=== PATIENT | male | born 1995 | race Caucasian/White ===

== ENCOUNTER 2023-11-29 08:57 | Outpatient (CLI) | payer SELFPAY ==
--- NOTE | 2023-11-29 09:15 | ECHOD_ITS ---
Reason For Study: Hypertrophic CMP Procedure This was a 2D Doppler, Color Flow transthoracic echocardiogram. Exam performed in department. Left Ventricle Normal LV size. Severe eccentric left ventricular hypertrophy. Left ventricular systolic function is normal. The left ventricular ejection fraction is 65 %. Resting LV gradient 4 mmHg. Valsalva LV gradient 6 mmHg. No regional wall motion abnormalities noted. Right Ventricle Normal RV size. Normal systolic function. Atria Normal left atrium. Normal right atrium. Mitral Valve Systolic anterior motion of the mitral valve. Mild mitral valve prolapse. Mild (1+) eccentric mitral valve insufficiency. Tricuspid Valve Normal tricuspid valve. Mild tricuspid valve insufficiency. Pulmonary artery systolic pressure is 18 mmHg. Aortic Valve Normal aortic valve. Trisinus/trileaflet aortic valve. Pulmonic Valve Normal pulmonic valve. Great Vessels Normal aortic root. The pulmonary artery is normal size. Normal inferior vena cava. Pericardium/Pleural No pericardial effusion. MMode/2D Measurements & Calculations LVIDd: 3.7 cm IVSd: 1.7 cm Ao root diam: 2.7 cm LVIDs: 2.2 cm LVPWd: 1.1 cm RVDd: 3.4 cm FS: 40.3 % LAV(MOD-bp): 39.1 ml LVAd ap4: 27.0 cm2 LVAd ap2: 25.9 cm2 LAV(MOD-bp) Indexed: 20.3 ml/m2 LVLd ap4: 8.4 cm LVLd ap2: 8.4 cm LAV(MOD-sp2): 42.5 ml EDV(MOD-sp4): 71.5 ml EDV(MOD-sp2): 67.1 ml LAV(MOD-sp4): 33.1 ml EDV(sp4-el): 73.9 ml EDV(sp2-el): 68.1 ml LVAs ap4: 15.5 cm2 LVAs ap2: 15.0 cm2 LVLs ap4: 7.5 cm LVLs ap2: 7.6 cm ESV(MOD-sp4): 26.9 ml ESV(MOD-sp2): 24.6 ml ESV(sp4-el): 27.0 ml ESV(sp2-el): 24.9 ml EF(MOD-sp4): 62.4 % EF(MOD-sp2): 63.3 % EF(sp4-el): 63.4 % SV(MOD-sp4): 44.6 ml SV(MOD-sp2): 42.5 ml SV(sp4-el): 46.9 ml LA dimension(2D): 3.5 cm LA A4 area: 13.3 cm2 RA A4 area: 14.6 cm2 TAPSE: 2.0 cm Time Measurements MV dec time: 0.24 sec Doppler Measurements & Calculations MV E max jose: 52.0 cm/sec Lat Peak E' Jose: 12.6 cm/sec Med Peak E' Jose: 7.6 cm/sec MV A max jose: 36.7 cm/sec E/E' lat: 4.1 E/E' med: 6.8 MV E/A: 1.4 MV dec slope: 215.6 cm/sec2 Ao V2 max: 120.6 cm/sec LV V1 max: 113.7 cm/sec Ao max P.8 mmHg LV V1 max P.2 mmHg Ao V2 mean: 87.1 cm/sec LV V1 mean P.8 mmHg Ao mean P.3 mmHg LV V1 mean: 79.2 cm/sec Ao V2 VTI: 21.6 cm LV V1 VTI: 22.3 cm AV (velocity ratio): 1.0 PA V2 max: 87.2 cm/sec TR max jose: 186.4 cm/sec TR max P.9 mmHg ECHO/Echo Complete Interpretation Summary Normal LV size. Left ventricular systolic function is normal. Severe eccentric left ventricular hypertrophy. The left ventricular ejection fraction is 65 %. Mild mitral valve prolapse. Systolic anterior motion of the mitral valve. Resting LV gradient 4 mmHg. Valsalva LV gradient 6 mmHg. The global longitudinal strain is normal. The global longitudinal strain = -17. 7 % (normal). Ordering Physician: Hunter Villa Referring Physician: Hunter Villa Performed By: Vi Wolfe RDCS
--- NOTE | 2023-11-29 17:56 | STRESSREP_ITS ---
Stress Test Report Exercise stress test. 28-year-old male with a history of hypertrophic cardiomyopathy Stress protocol: Resting EKG demonstrates normal sinus rhythm with a rate of 65 bpm resting blood pressure is 124/62 mmHg. The patient exercised according to the regular Ramirez protocol for a total duration of 13 minutes and 30 seconds attaining a maximum h eart rate of 196 bpm which was 102% of maximum predicted heart rate; the maximum workload was 17.2 metabolic equivalents. At rest there were no ST or T wave changes noted to suggest ischemia and at peak exercise upsloping ST changes only were noted which did not meet the criteria for ischemia. No clinical angina was noted the test was terminated due to the target heart rate being achieved/fatigu e. The peak blood pressure was 152/60 mmHg. Rate-pressure product was 25,600. Conclusion: Stress test with no EKG criteria for ischemia. No arrhythmias noted. Excellent functional capacity.
== END 2023-11-29 23:59 | disposition home or self-care (01) ==
PROVIDERS: Referring Provider Internal Medicine Cardiovascular Disease; Visit Provider Internal Medicine Cardiovascular Disease
DX: I42.2 Other hypertrophic cardiomyopathy (principal); R00.2 Palpitations; Q24.8 Other specified congenital malformations of heart; I34.1 Nonrheumatic mitral (valve) prolapse
CPT/HCPCS: 93017; 93225; 93226; 93306